=== PATIENT | male | born 1970 ===

== ENCOUNTER → 2016-09-09 01:22 | Emergency (ER) | payer SELFPAY ==
[~2016-09-09 01:22] MED LIST: Haloperidol INJ IV/IM* 5 MG/ML AMP ONE; LORazepam INJ* 2 MG/ML 1 ML VIAL ONE; diPHENhydraMINE IV* 50 MG/ML 1 ml VIAL (BENADRYL) ONE
[2016-09-09 01:45] VITALS: BP 103/66
--- NOTE | 2016-09-09 07:40 | ED ---
Fritz Dangelo SooYoung, scribed for Harinder Johnson MD on 09/09/16 at 0152 . 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 Per police and EMS: pt expressed SI. Associated sx: hand lac to R index finger. Denies CP. Pt states he does not take daily medication. - History Of Current Complaint Chief Complaint: EDGeneral Time Seen by Provider: 09/09/16 01:48 Hx Obtained From: Patient, EMS, Other: - police Onset/Duration: Still Present PMH/Surg Hx/FS Hx/Imm Hx Previously Healthy: No - LEVEL 5 CAVEAT: PMHx LIMITED DUE TO PT CONDITION, UNCOOPERATIVE Infectious Disease History: No Infectious Disease History: Denies: Traveled Outside the [place] in Last 30 Days - Family History Family History: LEVEL 5 CAVEAT: FHx LIMITED DUE TO PT CONDITION, UNCOOPERATIVE - Social History Occupation: Unemployed - OTHER Lives: Pen[facility]entiary - [facility] Alcohol Use: Daily Hx Substance Use: No Substance Use Type: Reports: None Smoking Status (MU): Unknown if Ever Smoked Review of Systems - ROS Summary Review of Systems Summary: LEVEL 5 CAVEAT: ROS LIMITED DUE TO PT CONDITION, UNCOOPERATIVE Negative: Chest Pain Skin: Other - pos: lac to R index finger Psychological: Other - pos: SI All Other Systems Reviewed And Are Negative: No Physical Exam Triage Information Reviewed: Yes Vital Signs On Initial Exam: Initial Vitals Temp Pulse Resp BP Pulse Ox 98.4 F 106 18 103/66 98 09/09/16 01:42 09/09/16 01:42 09/09/16 01:42 09/09/16 01:42 09/09/16 01:42 Vital Signs Reviewed: Yes Appearance: Positive: Well-Appearing, No Pain Distress Skin: Positive: Warm, Skin Color Reflects Adequate Perfusion, Dry, Other Head/Face: Positive: Normal Head/Face Inspection - LAC TO INDEX FINGER OF R HAND , PT IS REFUSING REPAIR Eyes: Positive: EOMI, BETINA Neck: Positive: Supple, Nontender Respiratory/Lung Sounds: Positive: Clear to Auscultation, Breath Sounds Present Cardiovascular: Positive: RRR Musculoskeletal: Positive: Normal, Strength/ROM Intact Neurological: Positive: Normal, Sensory/Motor Intact, Alert, Oriented to Person Place, Time Psychiatric: Positive: Affect/Mood Appropriate - Jitendra Coma Scale Coma Scale Total: 15 Diagnostics - Vital Signs Vital Signs Temp Pulse Resp BP Pulse Ox 09/09/16 01:42 98.4 F 106 18 103/66 98 - Laboratory Lab Statement: Any lab studies that have been ordered have been reviewed, and results considered in the medical decision making process. Course/Dx - Course Course Of Treatment: Pt refuses lac repair. Will D/C back into police custody. CRITICAL CARE TIME LESS THAN 30 MINUTES. PATIENT REFUSED LACERATION REPAIR. DISCHARGE IN POLICE CUSTODY. - Differential Dx/Clinical Impression Provider Diagnosis: Laceration of right hand Discharge - Discharge Plan Condition: Stable Disposition: HOME Patient Education Materials: Laceration Without Closure (ED) Referrals: No Primary Care Phys,NOPCP [Primary Care Provider] - Additional Instructions: FOLLOW UP WITH YOUR DOCTOR. RETURN TO THE EMERGENCY DEPARTMENT FOR ANY WORSENING OF YOUR CONDITION OR QUESTIONS OR CONCERNS. The documentation as recorded by the Fritz wan SooYoung accurately reflects the service I personally performed and the decisions made by me, Harinder Johnson MD.
== END | disposition home or self-care (01) ==
LOC: ED 01:22
DX: S61.411A Laceration without foreign body of right hand, initial encounter (principal); Y04.0XXA Assault by unarmed brawl or fight, initial encounter; Y93.9 Activity, unspecified; Y92.9 Unspecified place or not applicable
CPT/HCPCS: 96374; 99283; J1200; J1630; J2060